=== PATIENT | male | born 1995 | race African-American/Black ===

== ENCOUNTER 2020-11-25 23:35 | Observation (INO) | payer OTHER ==
[~2020-11-25] VITALS: Ht 177.8 cm; Wt 87.2 kg
[2020-11-26] VITALS (7 sets, daily range): BP systolic 108–141; BP diastolic 58–85
[2020-11-26] MEDS ORDERED: NS 1,000 ML IV ONE
[2020-11-26 00:51] LABS: BASO % 0.2 % (0.0-1.0); EOS % 0.1 % (0.0-3.0); HEMATOCRIT 44.1 % (42.0-52.0); LYMPH % 8.4 % (24.0-44.0); MEAN CORPUSCULAR HEMOGLOBIN 26.1 pg (27.0-33.0); MEAN CORPUSCULAR HGB CONC 31.7 g/dl (32.0-36.5); MEAN CORPUSCULAR VOLUME 82.3 fl (80.0-96.0); MONO # 0.7 10^3/uL (0.0-0.8); MONO % 5.6 % (0.0-5.0); NEUTROPHILS # 10.4 10^3/uL (1.5-8.5); NEUTROPHILS % 85.5 % (36.0-66.0); PLATELET COUNT, AUTOMATED 207 10^3/uL (150-450); RED BLOOD COUNT 5.36 10^6/uL (4.30-6.10); WHITE BLOOD COUNT 12.2 10^3/uL (4.0-10.0)
[2020-11-26] MEDS ORDERED: ISOVUE-370 76% 100ML VIAL As Ordered ONE (00:57)
[2020-11-26] MEDS ORDERED: ONDANSETRON 4MG/2ML VIAL IV ONE (01:00)
[2020-11-26] MEDS ORDERED: KETOROLAC 30 MG/ML 1ML VIAL IV ONE (01:00)
[2020-11-26 01:29] LABS: ALBUMIN 4.3 GM/DL (3.2-5.2); BILIRUBIN,DIRECT 0.2 MG/DL (0.0-0.2); BILIRUBIN,TOTAL 0.7 MG/DL (0.2-1.0); TOTAL PROTEIN 8.1 GM/DL (6.4-8.2)
--- NOTE | 2020-11-26 01:48 | REPVR ---
PROCEDURE INFORMATION: Exam: CT Abdomen And Pelvis With Contrast Exam date and time: 11/26/2020 12:52 AM Age: 25 years old Clinical indication: Abdominal pain; Localized; Right lower quadrant (rlq); Additional info: Rlq abd pain TECHNIQUE: Imaging protocol: Computed tomography of the abdomen and pelvis with intravenous contrast. Radiation optimization: All CT scans at this facility use at least one of these dose optimization techniques: automated exposure control; mA and/or kV adjustment per patient size (includes targeted exams where dose is matched to clinical indication); or iterative reconstruction. Contrast material: ISO; Contrast volume: 100 ml; Contrast route: INTRAVENOUS (IV); COMPARISON: No relevant prior studies available. FINDINGS: Lungs: No suspicious mass or airspace process in the visualized lung bases. Liver: Liver appears normal with no focal abnormality aside from a benign 3 mm right lobe cyst, image 28. Gallbladder and bile ducts: Gallbladder is present and shows no evidence of gallstone. Pancreas: Pancreas appears normal. No focal mass or peripancreatic inflammation. Spleen: Spleen appears homogeneous without focal mass. Adrenal glands: Adrenal glands are normal in appearance. Kidneys and ureters: Kidneys appear normal, with no stone, solid mass or hydronephrosis. Stomach and bowel: No evidence of small bowel obstruction. Appendix: Appendix is abnormal. Appendicoliths is present within the base of the appendix and the appendix is fluid-filled and dilated to 15 mm diameter distal to this, with periappendiceal stranding. The appendix is retrocecal, terminating in the Nair's pouch region. No evidence of perforation at this time. Intraperitoneal space: No pneumoperitoneum. Vasculature: No aortic aneurysm. Main portal and splenic veins enhance normally. Lymph nodes: . No enlarged lymph nodes. Urinary bladder: Urinary bladder appears normal. Reproductive: No overt enlargement of the prostate gland. Bones/joints: Bony structures show no acute fracture or destructive process. Soft tissues: No concerning focal abnormality of the extra-abdominal and pelvic soft tissues. IMPRESSION: Acute appendicitis involving a 15 mm fluid-filled inflamed retrocecal appendix without evidence of perforation at this point Electronically signed by: Sarbjit Diaz On 11/26/2020 01:48:55 AM
[2020-11-26] MEDS ORDERED: cefTRIAXone SOD 1 GM in D5W MINI-BAG PLUS 50 ML IV SCH (02:00)
[2020-11-26] MEDS ORDERED: cefTRIAXone SOD 2 GM in D5W MINI-BAG PLUS 50 ML IV ONE (02:00)
[2020-11-26] MEDS ORDERED: MORPHINE 4 MG/ML 1ML VIAL/SYRINGE (J2270) IV PRN (02:00)
[2020-11-26] MEDS ORDERED: TUMS500C PO (02:03)
[2020-11-26] MEDS ORDERED: NS 1,000 ML IV SCH ×2 (02:09→11:35)
[2020-11-26] MEDS ORDERED: ONDANSETRON 4MG/2ML VIAL IV PRN ×2 (02:15→12:00)
[2020-11-26] MEDS ORDERED: MORPHINE 4 MG/ML 1ML VIAL/SYRINGE (J2270) IV ONE (02:30)
[2020-11-26 02:48] LABS: RSV AMPLIFICATION NEGATIVE (NEGATIVE)
[2020-11-26] MEDS: MORPHINE 4 MG/ML 1ML VIAL/SYRINGE (J2270) IV PRN ×2 (06:22→08:39)
[2020-11-26] MEDS ORDERED: SUGAMMADEX SODIUM 500 MG/5 ML VIAL (BRIDION) As Ordered ONE (09:35)
[2020-11-26] MEDS ORDERED: dexameTHASONE 4 MG/ML 1ML VIAL (J1100 PER 1MG) As Ordered ONE (09:35)
[2020-11-26] MEDS ORDERED: ACETAMINOPHEN 1000MG 100ML IV BTL (OFIRMEV) (J0131 PER 10MG) As Ordered ONE (09:35)
[2020-11-26] MEDS ORDERED: propofoL 200 MG/20 ML VIAL As Ordered ONE (09:35)
[2020-11-26] MEDS ORDERED: LIDOCAINE 2% 100MG/5ML SDV (FOR ANES.) As Ordered ONE (09:35)
[2020-11-26] MEDS ORDERED: ONDANSETRON 4MG/2ML VIAL As Ordered ONE (09:35)
[2020-11-26] MEDS ORDERED: ROCURONIUM BROMIDE 50 MG/5 ML VIAL As Ordered ONE (09:35)
[2020-11-26] MEDS ORDERED: KETOROLAC 60MG 2ML VIAL As Ordered ONE (09:35)
[2020-11-26] MEDS ORDERED: MIDAZOLAM INJ 2MG/2ML VIAL (J2250 PER 1MG) As Ordered ONE (09:36)
[2020-11-26] MEDS ORDERED: fentaNYL 100 MCG/2 ML INJECTION (J3010) As Ordered ONE ×2 (09:36→11:19)
[2020-11-26] MEDS ORDERED: LIDOCAINE W/EPINEPHRINE 1% 20ML VIAL As Ordered ONE ×2 (10:15→10:43)
[2020-11-26] MEDS ORDERED: HYDROmorphone 2 MG TAB PO PRN (11:45)
[2020-11-26] MEDS ORDERED: LR 1,000 ML IV SCH (12:00)
[2020-11-26] MEDS ORDERED: MORPHINE 2 MG/ML 1ML VIAL (J2270) IV PRN (12:00)
[2020-11-26] MEDS ORDERED: oxyCODONE 5MG TAB PO PRN (12:00)
[2020-11-26] MEDS ORDERED: METOCLOPRAMIDE INJ 10MG/2ML VIAL (J2765 PER 1) IV PRN (12:00)
[2020-11-26] MEDS ORDERED: fentaNYL 100 MCG/2 ML INJECTION (J3010) IV PRN (12:00)
[2020-11-26] MEDS: ULTRACET TAB PO PRN (15:12)
[2020-11-26] MEDS: KETOROLAC 30 MG/ML 1ML VIAL IV SCH ×2 (17:42→23:08)
[2020-11-27] MEDS: ULTRACET TAB PO PRN (01:10)
[2020-11-27 02:00] VITALS: BP 133/69
[2020-11-27] MEDS ORDERED: cefTRIAXone SOD 1 GM in D5W MINI-BAG PLUS 50 ML IV SCH (02:00)
[2020-11-27 06:00] VITALS: BP 117/51
[2020-11-27] MEDS: KETOROLAC 30 MG/ML 1ML VIAL IV SCH ×2 (06:06→10:55)
[2020-11-27] MEDS ORDERED: NORC1TAB7 PO (10:35)
[2020-11-27] MEDS ORDERED: IBUP-1022 PO (10:35)
== END 2020-11-27 12:20 ==
LOC: M ED 23:35 → M SDC 23:36 → M MS5PR 11-26 12:30 → M SDC 11-27 10:26 → M MS5PR 11-27 10:27
PROVIDERS: ADMIT Surgery; ATTEND Surgery
DX: K35.890 Other acute appendicitis without perforation or gangrene (principal); Z88.0 Allergy status to penicillin
CPT/HCPCS: 44970; 74177; 80047; 80076; 83690; 85025; 87631; 88302; 93041; 96361; 96365; 96366; 96375; 96376; 99285; J0131; J0696; J1100; J1885; J2250; J2270; J2405; J3010; Q9967